=== PATIENT | female | born 1955 | race Caucasian/White ===

== ENCOUNTER 2023-02-17 17:18 | Day surgery (SDC) | payer BC, SELFPAY ==
[2023-02-17] VITALS (8 sets, daily range): BP systolic 95–120; BP diastolic 58–71; PULSE 60–82; RESP 14–18; TEMP 36.4–36.8; O2SAT 93–97; BMI 25.8; BMI 26.0
--- NOTE | 2023-02-17 16:04 | CRLHL7_ITS ---
For Patients: As a result of the Century Cures Act, medical imaging exams and procedure reports are released immediately into your electronic medical record. You may view this report before your referring provider. If you have questions, please contact your health care provider. INDICATION: Right upper quadrant abdomen pain. TECHNIQUE: Ultrasound abdomen limited. Sonographic images of the right upper quadrant were obtained using ram-scale and color Doppler images. COMPARISON: None. FINDINGS: Liver: Normal in size and echotexture. Multiple hepatic cysts. No suspicious masses. No intrahepatic biliary dilatation. Gallbladder: Mildly distended gallbladder with associated wall thickening, and possible tiny gallstones. Positive sonographic Babcock sign per corporate associate attorney. Common bile duct: 8 mm. Pancreas: Unremarkable. Right kidney: Normal in size. Normal echotexture and cortex. No hydronephrosis. Incidental 7 millimeter right superior pole hyperechoic lesion, possibly angiomyolipoma. Vasculature: Proximal abdominal aorta and IVC are unremarkable. IMPRESSION: Mildly distended gallbladder with associated wall thickening and possible tiny gallstones. Positive sonographic Babcock sign per corporate associate attorney. Constellation of findings could suggest early appendicitis in the appropriate clinical setting. Recommend correlation with localized physical examination and laboratory values. Mild dilation of the common bile duct, measuring 8 millimeters. Recommend correlation with bilirubin to evaluate for biliary obstruction. Incidental 7 millimeter right superior pole hypoechoic lesion, possibly angiomyolipoma. Recommend correlation with prior imaging if available. If not, consider outpatient nonemergent MRI or CT for further characterization, although this lesion may be too diminutive in size for sufficient evaluation with cross-sectional imaging. Dictated by Ronald Mehta MD @ 02/17/2023 5:57:06 PM (Electronically Signed)
[2023-02-17] MEDS: ONDANSETRON 2 MG/ML inj 4 MG IVP (16:12)
[2023-02-17] MEDS: MORPHINE 4 MG/ML INJ IVP (16:17)
[2023-02-17 16:31] LABS: Basophils Absolute Auto 0.03 K/uL (0.00-0.30); Basophils Percent Auto 0.4 % (0.0-3.0); Eosinophils Absolute Auto 0.16 K/uL (0.00-0.50); Eosinophils Percent Auto 2.1 % (0.0-7.0); Hematocrit 40.2 % (33.0-51.0); Hemoglobin* 13.1 gm/dL (12.0-16.0); Immature Granulocytes Abs Auto 0.01 K/uL (0.00-0.30); Immature Granulocytes Pct Auto 0.1 %; Lymphocytes Percent Auto 17.2 % (20-44); Mean Corpuscular HGB Conc 33 gm/dL (32-36); Mean Corpuscular Hemoglobin 30 pg (26-34); Mean Corpuscular Volume 92 fL (80-100); Neutrophils Absolute Auto 5.27 K/uL (1.7-7.0); Neutrophils Percent Auto 70.2 % (42.0-72.0); Platelet Count* 406 K/uL (140-440); RDW Coefficient of Variation % 12.6 % (11.5-15.5); Red Blood Count 4.38 m/uL (4.00-5.20); White Blood Count* 7.51 K/uL (4.50-11.00)
[2023-02-17 16:35] LABS: Slide Review Reflex No
[2023-02-17 16:37] LABS: Albumin* 4.4 g/dL (3.3-5.0); Chloride* 101 mmol/L (96-114); Potassium* 3.4 mmol/L (3.6-5.1); Sodium* 139 mmol/L (135-149)
[2023-02-17 16:39] LABS: Bilirubin Total* 1.5 mg/dL (0.1-1.5); Carbon Dioxide* 30 mmol/L (20-32); Creatinine* 0.7 mg/dL (0.5-1.5); Est. Creatinine Clearance* 52.51; Estimated Glomerular Filt Rate 96 ml/min
[2023-02-17 16:40] LABS: Alanine Aminotransferase* 476 U/L (4-35); Alkaline Phosphatase* 91 U/L (40-150); Blood Urea Nitrogen* 13 mg/dL (7-30); Calcium* 9.1 mg/dL (8.4-10.6); Glucose* 121 mg/dL (60-115); Total Protein* 7.4 g/dL (6.0-8.3)
[2023-02-17 16:46] LABS: Aspartate Amino Transferase* 737 U/L (12-35)
--- OUTSIDE RECORDS SUMMARY | 2023-02-17 17:20 | XMS_ITS | Continuity of Care Document ---
Author Name Unknown Organization [facility] Address [address] [place] [address] Phone Care Team Providers Care Last Scourer Name Role Phone Shyanne GARCIA, PhD, Keith Unavailable Unavai lable Allergies, Adverse Reactions, Alerts Substance Reaction Status Criticality No Known Allergies Active No Inform ation Medications Medication Instructions Dosage Effective Dates (start - stop) Status Comments TIZANIDINE HCL (unknown strength) Not Available - Active FLUOXETINE HCL (unknown strength) Not Available - Active Procedures Procedure Date Office/Outpatient Visit,[facility] 2017 Advance Directives Directive Yes / No Effective Date File Name No Information Encounters Encounter Description Practice Location Reason(s) For Visit Diagnoses Date Provider Providers Copied on Encounter Office/Outpat ient Visit,[facility], [facility], [address], [facility] [place], [id number], [place] tel:[phone] [facility] [place] CervicalgiaOther spondylosis, cervical region 8 Shyanne Parker. [facility], [address] [facility] [address], [place], [address], [place]. tel:[phone] [facility], [address], [place], [id number], [place] tel:[phone] [facility] Cervicalgia 8 Shyanne Parker. [facility], [address], [place], [address], [place]. [phone] Family History Family Member Type Diagnosis Age At Onset No Information Payers Payer name Insurance type Covered constitution party ID Authoriza tion(s) [facility] [id number] Social History Type Description Quantity Date Captured Comments Alcohol Use Details Unknown Caffeine Use Details Unknown Tobacco Use Status Never smoked tobacco 2017 Smoking Status Never smoker Non-Smoking Tobacco Use Details : No Details Available : No Details Available Sex Female Vital Signs Date / Time: Height Weight BMI Pulse Rate Blood Pressure Temperature Respiratory Rate Body Surface Area Head Circumference Head Circ. Percentile Wt./Juan. Percentile BMI percentile Pulse Ox Inhaled Ox 12:39 PM 66.00 in 73.482 kg (162.00 lbs) 26.1 5 kg/m eter (2) 86 /min 106/64 mm[Hg] Chief Complaint And Reason For Visit No Information Reason For Referral Reason For Referral No Information History Of Present Illness Encounter Date Complaint History Of Prese nt Illness No Information Functional Status Date Functional Assessmen t No Information Instructions Date Instruction Additional Infor mation No Information Assessments Type Assessment Date assessment Cervicalgia assessment Other spondylosis, cervical cristin on Patient Care Teams Name Effective Dates (start - stop) Status Members No Information
--- OUTSIDE RECORDS SUMMARY | 2023-02-17 17:21 | XMS_ITS | Continuity of Care Document ---
Author Name Unknown Organization [facility] Address [address] [place] [address] Phone Care Team Providers Care Boiler Installer Name Role Phone Shyanne GARCIA, PhD, Keith Unavailable Unavai lable Allergies, Adverse Reactions, Alerts Substance Reaction Status Criticality No Known Allergies Active No Inform ation Medications Medication Instructions Dosage Effective Dates (start - stop) Status Comments TIZANIDINE HCL (unknown strength) Not Available - Active FLUOXETINE HCL (unknown strength) Not Available - Active Procedures Procedure Date Office/Outpatient Visit,[facility] [place] Advance Directives Directive Yes / No Effective Date File Name No Information Encounters Encounter Description Practice Location Reason(s) For Visit Diagnoses Date Provider Providers Copied on Encounter Office/Outpat ient Visit,[facility], [facility], [address], [facility] [place], [id number], [place] tel:[phone] [facility] [place] CervicalgiaOther spondylosis, cervical region 8 Shyanne Parker. [facility], [address] [facility] [address], [place], [address], [place]. tel:[phone] [facility], [address], [place], [place], [id number], [place] tel:[phone] [facility] Cervicalgia 8 Shyanne Parker. [facility], [address], [place], [address], [place]. [phone] Family History Family Member Type Diagnosis Age At Onset No Information Payers Payer name Insurance type Covered constitution party ID Authoriza tion(s) [facility] [id number] Social History Type Description Quantity Date Captured [...]
--- NOTE | 2023-02-17 17:27 | ED.GENADULT ---
HPI - General Adult General Date Seen: 02/17/23 Chief complaint: Abdominal Pain Stated complaint: Sharp pain R side Time Seen by Provider: 02/17/23 15:59 Source: patient Mode of arrival: ambulatory Limitations: no limitations History of Present Illness HPI narrative: Patient is a 67-year-old female with no previous abdominal surgeries and no pertinent medical problems presenting to emergency department for right upper quadrant abdominal pain. She states the symptoms have been going on for the past month. She has not been associated primary care provider yet. She has been doing the symptoms and noted acutely worse today. States they are worse after meals Especially after fatty or spicy meals. denies fevers, chills, chest pain, shortness of breath, headache, vision changes, weakness, numbness, diarrhea, dysuria. States she still has her gallbladder. Denies any other abdominal issues. Related Data Home Medications Medication Instructions Recorded Confirmed fluoxetine 20 mg capsule 40 mg PO QAM 02/17/23 02/17/23 quetiapine 50 mg tablet 50 mg PO QPM 02/17/23 02/17/23 Allergies Allergy/AdvReac Type Severity Reaction Status Date / Time No Known Drug Allergies Allergy Verified 02/17/23 15:58 Review of Systems Status of ROS: Reports: 10 or more systems reviewed and unremarkable except as noted in History and below PFSH PFS Social History Smoking Status: Never smoker How often do you have a drink containing alcohol: never How often do you have six or more drinks on one occasion: Never AUDIT-C Alcohol total score: 0 Non-prescribed substance use: denies use Exam Narrative: Exam Narrative: Const: Well-nourished, Well-developed, in mild distress Eyes: PERRL, no conjunctival injection, and symmetrical lids ENMT: Atraumatic external nose and ears. Moist mucous membranes. Neck: Symmetric, trachea midline, No thyromegaly. CVS: RRR, No murmurs or gallops. Peripheral pulses 2+ and equal in all extremities RESP: Unlabored respiratory effort. Clear to auscultation bilaterally. GI: Right upper quadrant tenderness.Nondistended, Positive Babcock sign MSK:Extremities w/o deformity, Normal Active ROM Skin: Warm, Dry. No rashes or lesions. Neuro: Normal Muscle tone, No focal neurological deficits. Psych: Awake, Alert, & Oriented x3. Appropriate mood and affect. Const: Vital Signs, click to edit/add: Vital Signs - 24 hr 02/17/23 15:55 02/17/23 16:19 02/17/23 18:15 Temperature 97.6 F Pulse Rate [Pulse Oximeter] 82 75 Respiratory Rate 16 Blood Pressure [Ri ght Upper Arm] 104/71 106/70 Pulse Oximetry 97 93 97 Oxygen Delivery Me thod Room Air Room Air 02/17/23 19:45 Temperature 97.9 F Pulse Rate [Pulse Oximeter] 77 Respiratory Rate Blood Pressure [Ri ght Upper Arm] 107/58 L Pulse Oximetry 94 Oxygen Delivery Me thod Room Air Course Vital Signs Vital signs: Initial Vital Signs Temperature 97.6 F 02/17/23 15:55 Temperature Source Temporal Artery Scan 02/17/23 15:55 Pulse Rate 82 02/17/23 15:55 Respiratory Rate 16 02/17/23 15:55 Blood Pressure 104/71 02/17/23 15:55 Blood Pressure Mean 82 02/17/23 15:55 Blood Pressure Position Sitting 02/17/23 15:55 Pulse Oximetry 97 02/17/23 15:55 Oxygen Delivery Method Room Air 02/17/23 15:55 Vital Signs Temperature 97.6 F 02/17/23 15:55 Pulse Rate 82 02/17/23 15:55 Respiratory Rate 16 02/17/23 15:55 Blood Pressure 104/71 02/17/23 15:55 Pulse Oximetry 97 02/17/23 15:55 Oxygen Delivery Method Room Air 02/17/23 15:55 Temperature 97.9 F 02/17/23 19:45 Pulse Rate 77 02/17/23 19:45 Respiratory Rate 16 02/17/23 15:55 Blood Pressure 107/58 L 02/17/23 19:45 Pulse Oximetry 94 02/17/23 19:45 Oxygen Delivery Method Room Air 02/17/23 19:45 Medical Decision Making MDM Narrative Medical decision making narrative: patient is a 67-year-old female presenting emergency department for right upper quadrant pain. Pain is going for past month and it is worse when she eats fatty or spicy foods. She still has a gallbladder. No other abdominal surgeries. Based on her clinical presentation I believe she most likely is cholecystitis. She has a positive Babcock sign. She did have some tenderness in the right lower quadrant appendicitis is on the differential at this time. Also possibly pancreatitis. Likely be a small-bowel obstruction concerning this symptoms. CBC, CMP, direct check bilirubin, lipase, urinalysis, right upper quadrant ultrasound were ordered. Ultrasound of the right upper quadrant shows possibly cholecystitis but also some concerns for appendicitis and due to this CT was ordered. The CT scan returned showing acute cholecystitis. Ultrasound also showed a mildly dilated common bile duct and cannot rule out stones within the common bile duct at this time. Patient's lab work returned showing a AST of 737 and an ALT of 476. I spoke to Dr. Lama and she agrees with the Cholecystitis. The direct bilirubin was still pending at this time she states if it is normal or only mildly elevated she Does not believe the patient needs an ERCP and she does not need to be contacted again. patient is otherwise doing well. She was admitted to the hospitalist service. Lipase was within normal limits and direct bilirubin was only 0.8. No clear signs of infection at this time and antibiotics were not given. Lab Data Labs: Lab Results 02/17/23 02/17/23 02/17/23 Range/Units 16:00 19:59 20:01 WBC 7.51 (4.50-11.00) K/uL RBC 4.38 (4.00-5.20) m/uL Hgb 13.1 (12.0-16.0) gm/dL Hct 40.2 (33.0-51.0) % MCV 92 (80-100) fL MCH 30 (26-34) pg MCHC 33 (32-36) gm/dL RDW Coeff of Maxim 12.6 (11.5-15.5) % Plt Count 406 (140-440) K/uL Neut % (Auto) 70.2 (42.0-72.0) % Lymph % (Auto) 17.2 L (20-44) % [facility] % (Auto) 10.0 (0.0-11.0) % Eos % (Auto) 2.1 (0.0-7.0) % Baso % (Auto) 0.4 (0.0-3.0) % Neut # (Auto) 5.27 (1.7-7.0) K/uL Lymph # (Auto) 1.30 (0.90-2.90) K/uL [facility] # (Auto) 0.80 (0.00-0.90) K/UL Eos # (Auto) 0.16 (0.00-0.50) K/uL Baso # (Auto) 0.03 (0.00-0.30) K/uL Abs Immat Gran (auto) 0.01 (0.00-0.30) K/uL Imm/Tot Granulo (auto) 0.1 % Sodium 139 (135-149) mmol/L Potassium 3.4 L (3.6-5.1) mmol/L Chloride 101 (96-114) mmol/L Carbon Dioxide 30 (20-32) mmol/L BUN 13 (7-30) mg/dL Creatinine 0.7 (0.5-1.5) mg/dL Estimated Creat Clear 52.51 Estimated GFR 96 ml/min Glucose 121 H (60-115) mg/dL Calcium 9.1 (8.4-10.6) mg/dL Total Bilirubin 1.5 (0.1-1.5) mg/dL Direct Bilirubin 0.8 H (0.0-0.5) mg/dL AST 737 H (12-35) U/L ALT 476 H (4-35) U/L Alkaline Phosphatase 91 (40-150) U/L Total Protein 7.4 (6.0-8.3) g/dL Albumin 4.4 (3.3-5.0) g/dL Lipase 137 (23-300) U/L Lab Acknowledgement Test Added Test Added Discharge Plan Discharge Clinical Impression: Acute cholecystitis Patient Disposition: Admitted As Observation Condition: Improved
--- NOTE | 2023-02-17 18:00 | CRLHL7_ITS ---
For Patients: As a result of the Century Cures Act, medical imaging exams and procedure reports are released immediately into your electronic medical record. You may view this report before your referring provider. If you have questions, please contact your health care provider. INDICATION: right upper quadrant and right lower quadrant tenderness since today, pain was intermittent for a couple of months. TECHNIQUE: CT abdomen and pelvis acquired with 79 cc Isovue 370 IV contrast. COMPARISON: None. FINDINGS: Lower chest: Unremarkable. Liver: Unremarkable. Normal in size and attenuation. No suspicious masses. Gallbladder and bile ducts: Gallbladder wall enhancement and likely mild thickening is noted. Pericholecystic fluid is identified. Mild intrahepatic biliary ductal dilatation. Pancreas: Unremarkable. No mass or inflammation. Spleen: Unremarkable. Normal in size. No masses. Adrenal glands: Unremarkable. No nodules. Kidneys: Unremarkable. No suspicious masses, stones, or hydronephrosis. GI tract: Unremarkable. Normal in caliber. No sign of mass or inflammation. Normal appendix. Vasculature: Abdominal aorta is normal in caliber. Mesenteric arteries are patent. Lymph nodes: No lymphadenopathy. Peritoneum/Abdominal Wall: Unremarkable. No sign of mass or infiltration. No free air or significant free fluid. Pelvis: Unremarkable. Bones: Unremarkable for age. IMPRESSION: Mild gallbladder wall thickening and enhancement with pericholecystic fluid concerning for cholecystitis. Please note that all CT scans at this facility use dose modulation, iterative reconstruction, and/or weight-based dosing when appropriate to reduce radiation dose to as low as reasonably achievable. Dictated by Nika Wilks MD @ 02/17/2023 7:51:57 PM (Electronically Signed)
[2023-02-17 20:51] LABS: Bilirubin Direct* 0.8 mg/dL (0.0-0.5)
[2023-02-17 20:52] LABS: Lipase* 137 U/L (23-300)
--- NOTE | 2023-02-17 21:41 | P.IMHP_ITS ---
Hospitalist- H&P: HPI History of Present Illness Date Seen: 02/18/23 Chief complaint: Sharp pain R side Narrative: Nguyen Hill is a 67 year old female with past medical history of Depression presenting for abdominal pain. The patient has had intermittent abdominal pain for several weeks that has been waxing and waning. Today she developed sharp and burning RUQ abdominal pain. 05/04. Radiates to back worsens with eating. She endorses nausea and dyspepsia. She denies chest pain, sob, fever. In the ED RUQ US showed Mildly distended gallbladder with associated wall thickening and possible tiny gallstones. Positive sonographic Babcock signMild dilation of the common bile duct, measuring 8 millimeters. Recommend correlation with bilirubin to evaluate for biliary obstruction. Incidental 7 millimeter right superior pole hypoechoic lesion, possibly angiomyolipoma. CT AP showing Mild gallbladder wall thickening and enhancement with pericholecystic fluid concerning for cholecystitis. Notable labs potassium 3.4, AST 737, ALT 476, Alkphos, lipase, Tbili WNL. She denies adverse reaction to general anesthesia. She denies toboacco use and endorses occassional alcohol use very seldom. In the ED her case was discussed with General Surgery who recommended admission with co nsultation in AM. RUQ US IMPRESSION: Mildly distended gallbladder with associated wall thickening and possible tiny gallstones. Positive sonographic Babcock sign per artificial limb fitter. Constellation of findings could suggest early appendicitis in the appropriate clinical setting. Recommend correlation with localized physical examination and laboratory values. Mild dilation of the common bile duct, measuring 8 millimeters. Recommend correlation with bilirubin to evaluate for biliary obstruction. Incidental 7 millimeter right superior pole hypoechoic lesion, possibly angiomyolipoma. Recommend correlation with prior imaging if available. If not, consider outpatient nonemergent MRI or CT for further characterization, although this lesion may be too diminutive in size for sufficient evaluation with cross-sectional imaging. Review of Systems Status of ROS: Reports: 10 or more systems reviewed and unremarkable except as noted in History and below [facility] Medical History H/O pneumothorax ?Z87.09 - Personal history of other diseases of the respiratory system (ICD- 10) Surgical History H/O breast augmentation ?Z98.82 - Breast implant status (ICD-10) H/O lumbosacral spine surgery ?Z98.890 - Other specified postprocedural states (ICD-10) Social History What is your current living situation?: I presently have a place to live Problems where you live: no known problems Problems where you live details: N/A In the past 12 months, utilities in danger of being shut off: no In the past 12 mos, have been you worried that your food would run out before you had money to buy more?: never true In the past 12 mos, the food you bought just didn't last and you didn't have money to buy more?: never true Highest level of school completed/degree received: some college, no degree Smoking Status: Never smoker Do you use any of these nicotine containing products: None Second hand tobacco smoke exposure: No How often do you have a drink containing alcohol: never How often do you have six or more drinks on one occasion: Never AUDIT-C Alcohol total score: 0 Non-prescribed substance use: denies use Caffeine: Yes How often does anyone, including family, friends and others, physically hurt you : never How often does anyone, including family, friends and others, insult or talk down to you: never How often does anyone, including family, friends and others, threaten you with harm: never How often does anyone, including family, friends and others, scream or curse at you: never service: No Meds Home Medications and Allergies Home Medications Medication Instructions Recorded Confirmed Type fluoxetine 20 mg capsule 40 mg PO QAM 02/17/23 02/17/23 History quetiapine 50 mg tablet 50 mg PO HS 02/17/23 02/18/23 History Allergies Allergy/AdvReac Type Severity Reaction Status Date / Time No Known Drug Allergies Allergy Verified 02/17/23 15:58 Exam Narrative: Exam Narrative: Gen: no acute distress HEENT: NCAT EOMI mmm Neck: Supple CV: RRR normal s1 s2 Lungs: CTAB Abd: Soft,nt, nd Neuro: Alert, oriented, CN grossly intact; nonfocal screening?exam Psych: appropriate affect MSK: age appropriate muscle mass Skin; Warm, dry no rash on face Const: Vital Signs, click to edit/add: Vital Signs - 24 hr 02/17/23 15:55 02/17/23 16:19 02/17/23 18:15 Temperature 97.6 F Pulse Rate [Pulse Oximeter] 82 75 Respiratory Rate 16 Blood Pressure [Ri ght Upper Arm] 104/71 106/70 Pulse Oximetry 97 93 97 Oxygen Delivery Me thod Room Air Room Air 02/17/23 19:45 02/17/23 21:35 Temperature 97.9 F Pulse Rate [Pulse Oximeter] 77 64 Respiratory Rate Blood Pressure [Ri ght Upper Arm] 107/58 L 120/68 Pulse Oximetry 94 95 Oxygen Delivery Me thod Room Air Room Air Hospitalist - H&P: Result Labs Labs: Short CBC 02/17/23 Range/Units 16:00 WBC 7.51 (4.50-11.00) K/uL Hgb 13.1 (12.0-16.0) gm/dL Hct 40.2 (33.0-51.0) % Plt Count 406 (140-440) K/uL BMP 02/17/23 16:00 Sodium 139 Potassium 3.4 L Chloride 101 Carbon Dioxide 30 BUN 13 Creatinine 0.7 Glucose 121 H Calcium 9.1 Liver Function 02/17/23 Range/Units 16:00 Total Bilirubin 1.5 (0.1-1.5) mg/dL Direct Bilirubin 0.8 H (0.0-0.5) mg/dL AST 737 H (12-35) U/L ALT 476 H (4-35) U/L Alkaline Phosphatase 91 (40-150) U/L Albumin 4.4 (3.3-5.0) g/dL Assessment and Plan Assessment and plan (1) Hypokalemia: Status: Acute (2) Depression: Status: Acute Plan Nguyen Hill is a 67 year old female with past medical history of Depression presenting for abdominal pain. The patient has had intermittent abdominal pain for several weeks that has been waxing and waning. Today she developed sharp and burning RUQ abdominal pain. 05/04. Radiates to back worsens with eating. She endorses nausea and dyspepsia. She denies chest pain, sob, fever. In the ED RUQ US showed Mildly distended gallbladder with associated wall thickening and possible tiny gallstones. Positive sonographic Babcock signMild dilation of the common bile duct, measuring 8 millimeters. Recommend correlation with bilirubin to evaluate for biliary obstruction. Incidental 7 millimeter right superior pole hypoechoic lesion, possibly angiomyolipoma. CT AP showing Mild gallbladder wall thickening and enhancement with pericholecystic fluid concerning for cholecystitis. Notable labs potassium 3.4, AST 737, ALT 476, Alkphos, lipase, Tbili WNL. She denies adverse reaction to general anesthesia. She denies toboacco use and endorses occassional alcohol use very seldom. In the ED her case was discussed with General Surgery who recommended admission with consultation in AM. 1. Acute cholecystitis 2. Hypokalemia 3. Hx of Depression Plan -admit to SDS -npo -MIVF -antiemetics -pain control -surgery team contacted by ED -barrera -repeat LFTs in AM -PPI Code-Full DVt ppx-SCD
[2023-02-17] MEDS: PIPERACILLIN/TAZOBACTAM 3.375 GM in 0.9 % SODIUM CHLORIDE Mini-bag 100 ML IVPB (22:49)
[2023-02-17] MEDS: PANTOPRAZOLE SODIUM 40 MG INJ IVP (22:49)
[2023-02-17] MEDS: POTASSIUM CHLORIDE 10 MEQ CAPSULE ER 20 MEQ PO (22:49)
--- NOTE | 2023-02-17 23:16 | PC.NURSE ---
Shift note: Pt arrived at the unit at 2145 on a wheelchair. Pt was alert, oriented and conscious on arrival. Vital signs were stable. Pain was rated as 1 on arrival. Epigastric tenderness. No n/v reported. Due treatment given as ordered.
[2023-02-17] MEDS: 5 % DEX/0.45 SOD CHL+KCL20 mEq 1,000 ML 100 ML IV (23:51)
[2023-02-17] MEDS: SODIUM CHLORIDE 0.9 % (FLUSH) 10 ML SYRINGE 5 ML IVF (23:52)
[2023-02-18] VITALS (35 sets, daily range): BP systolic 91–134; BP diastolic 55–79; PULSE 56–83; RESP 7–16; TEMP 36.4–36.9; O2SAT 81–99
[2023-02-18] MEDS: PIPERACILLIN/TAZOBACTAM 3.375 GM in 0.9 % SODIUM CHLORIDE Mini-bag 100 ML IVPB ×2 (04:06→14:52)
[2023-02-18] MEDS: ACETAMINOPHEN 325 MG TABLET 650 MG PO ×2 (04:35→18:27)
--- NOTE | 2023-02-18 06:01 | PC.NURSE ---
END OF SHIFT NOTE: PT PLEASANT AND COOPERATIVE. A&Ox4. PT DENIES CP, SOB, N/V. AMBULATES INDEPENDENTLY. BP SOFT ; AFEBRILE.?CALL LIGHT WITHIN PT?S REACH.?PT HAS BEEN NPO THIS SHIFT.
[2023-02-18 06:12] LABS: Appearance Urine Clear (Clear); Bilirubin Urine Negative (Negative); Blood Urine Negative (Negative); Color Urine Yellow (Yellow); Glucose Urine Negative (Negative); Ketones Urine Negative (Negative); Leukocyte Esterase Urine Negative (Negative); Nitrite Urine Negative (Negative); Protein Urine Negative (Negative); Specific Gravity Urine 1.015 (1.000-1.030); Urobilinogen Urine 0.2 (0.2-1.0)
[2023-02-18 06:29] LABS: RBC Urine 0-2 (0-2); WBC Urine 0-2 (0-5)
--- NOTE | 2023-02-18 08:10 | P.GSCN_ITS ---
History of Present Illness Consult details Date Seen: 02/18/23 Consult date: 02/18/23 Narrative: 67-year-old female presented to emergency room with right upper quadrant pain that started yesterday in the morning. She states the pain was so severe and was escalating that she presented to the emergency room. She was not sure what was making the pain better or worse. Yesterday in the morning she had yogurt and tomatoes. She states that she had several similar episodes in the past and started to record those episodes. She mostly noticed that the episodes happened after eating spicy and fried food. In the emergency room she was found to have a normal WBC of 7.5. Her hemoglobin was 13.1. Liver function tests were obtained and her total bilirubin was 1.5 with direct bilirubin 0.8, AST 737, ALT 476, alkaline phosphatase 91, and normal lipase. Patient had an gallbladder ultrasound that showed distended gallbladder with a gallbladder wall of 4 mm. Her common bile duct was 7-8 mm. Patient also had a CT scan because she had some tenderness to palpation in the right lower quadrant as well and her CT scan showed liver cysts with thickened gallbladder wall and pericholecystic fluid. Her small and large intestine was not dilated. Review of Systems Narrative: General: no fevers HENT: no problems swallowing CV: no shortness of breath Resp: no cough GI: See above : no dysuria, no increased urinary frequency, no hematuria Skin: no new rashes Musculoskeletal: no back pain Neuro: no muscle weakness Psyche: no depression, no anxiety PFSH PFSH Medical History H/O pneumothorax ?Z87.09 - Personal history of other diseases of the respiratory system (ICD- 10) Surgical History H/O breast augmentation ?Z98.82 - Breast implant status (ICD-10) H/O lumbosacral spine surgery ?Z98.890 - Other specified postprocedural states (ICD-10) Social History What is your current living situation?: I presently have a place to live Problems where you live: no known problems Problems where you live details: N/A In the past 12 months, utilities in danger of being shut off: no In the past 12 mos, have been you worried that your food would run out before you had money to buy more?: never true In the past 12 mos, the food you bought just didn't last and you didn't have money to buy more?: never true Highest level of school completed/degree received: some college, no degree Smoking Status: Never smoker Do you use any of these nicotine containing products: None Second hand tobacco smoke exposure: No How often do you have a drink containing alcohol: never How often do you have six or more drinks on one occasion: Never AUDIT-C Alcohol total score: 0 Non-prescribed substance use: denies use Caffeine: Yes How often does anyone, including family, friends and others, physically hurt you : never How often does anyone, including family, friends and others, insult or talk down to you: never How often does anyone, including family, friends and others, threaten you with harm: never How often does anyone, including family, friends and others, scream or curse at you: never service: No Meds Home Medications and Allergies Home Medications Medication Instructions Recorded Confirmed Type fluoxetine 20 mg capsule 40 mg PO QAM 02/17/23 02/17/23 History quetiapine 50 mg tablet 50 mg PO HS 02/17/23 02/18/23 History Allergies Allergy/AdvReac Type Severity Reaction Status Date / Time No Known Drug Allergies Allergy Verified 02/17/23 15:58 Exam Narrative: Exam Narrative: General appearance: Alert, cooperative, and in no distress Pulmonary: Chest symmetric, lungs clear bilaterally Cardiovascular Heart: Regular rate and rhythm, S1, S2, no murmurs/rubs/gallops Gastrointestinal Abdominal: soft, not distended, tender to palpation in the right upper quadrant with positive Babcock sign. There is minimal tenderness to palpation the right lower quadrant. Skin: Normal skin color, texture, and turgor. No rashes or lesions. Psychiatric: Alert, cooperative, normal affect. Const: Vital Signs, click to edit/add: Vital Signs - 24 hr 02/17/23 15:55 02/17/23 16:19 02/17/23 18:15 Temperature 97.6 F Pulse Rate [Pulse Oximeter] 82 75 Pulse Rate [Right Pulse Oximeter] Respiratory Rate 16 Blood Pressure [Ri ght Arm] Blood Pressure [Ri ght Upper Arm] 104/71 106/70 Pulse Oximetry 97 93 97 Oxygen Delivery Me thod Room Air Room Air 02/17/23 19:45 02/17/23 21:35 02/17/23 21:51 Temperature 97.9 F 98.2 F Pulse Rate [Pulse Oximeter] 77 64 Pulse Rate [Right Pulse Oximeter] 63 Respiratory Rate 18 Blood Pressure [Ri ght Arm] 116/67 Blood Pressure [Ri ght Upper Arm] 107/58 L 120/68 Pulse Oximetry 94 95 95 Oxygen Delivery Me thod Room Air Room Air Room Air 02/17/23 23:00 02/17/23 23:30 02/18/23 03:55 Temperature 97.5 F L 97.5 F L Pulse Rate [Pulse Oximeter] Pulse Rate [Right Pulse Oximeter] 60 56 L Respiratory Rate 14 14 14 Blood Pressure [Ri ght Arm] 95/61 91/57 L Blood Pressure [Ri ght Upper Arm] Pulse Oximetry 95 96 Oxygen Delivery Nc thod Room Air Room Air Results Labs Labs: Abnormal lab results 02/17/23 Range/Units 16:00 Lymph % (Auto) 17.2 L (20-44) % Potassium 3.4 L (3.6-5.1) mmol/L Glucose 121 H (60-115) mg/dL Direct Bilirubin 0.8 H (0.0-0.5) mg/dL AST 737 H (12-35) U/L ALT 476 H (4-35) U/L Diabetes panel 02/17/23 Range/Units 16:00 Sodium 139 (135-149) mmol/L Potassium 3.4 L (3.6-5.1) mmol/L Chloride 101 (96-114) mmol/L Carbon Dioxide 30 (20-32) mmol/L BUN 13 (7-30) mg/dL Creatinine 0.7 (0.5-1.5) mg/dL Glucose 121 H (60-115) mg/dL Calcium 9.1 (8.4-10.6) mg/dL AST 737 H (12-35) U/L ALT 476 H (4-35) U/L Alkaline Phosphatase 91 (40-150) U/L Total Protein 7.4 (6.0-8.3) g/dL Albumin 4.4 (3.3-5.0) g/dL Calcium panel 02/17/23 Range/Units 16:00 Calcium 9.1 (8.4-10.6) mg/dL Albumin 4.4 (3.3-5.0) g/dL Pituitary panel 02/17/23 Range/Units 16:00 Sodium 139 (135-149) mmol/L Potassium 3.4 L (3.6-5.1) mmol/L Chloride 101 (96-114) mmol/L Carbon Dioxide 30 (20-32) mmol/L BUN 13 (7-30) mg/dL Creatinine 0.7 (0.5-1.5) mg/dL Glucose 121 H (60-115) mg/dL Calcium 9.1 (8.4-10.6) mg/dL Adrenal panel 02/17/23 Range/Units 16:00 Sodium 139 (135-149) mmol/L Potassium 3.4 L (3.6-5.1) mmol/L Chloride 101 (96-114) mmol/L Carbon Dioxide 30 (20-32) mmol/L BUN 13 (7-30) mg/dL Creatinine 0.7 (0.5-1.5) mg/dL Glucose 121 H (60-115) mg/dL Calcium 9.1 (8.4-10.6) mg/dL Total Bilirubin 1.5 (0.1-1.5) mg/dL AST 737 H (12-35) U/L ALT 476 H (4-35) U/L Alkaline Phosphatase 91 (40-150) U/L Total Protein 7.4 (6.0-8.3) g/dL Albumin 4.4 (3.3-5.0) g/dL All other labs normal. Assessment and Plan Assessment and plan (1) Acute cholecystitis: Status: Acute Plan 67-year-old female presented to emergency room with right upper quadrant abdominal pain that is most likely due to acute cholecystitis and possible choledochocholelithiasis. I discussed with the patient her laboratory findings, her ultrasound and CT findings. Patient has inflammation around the gallbladder on her CT scan suggestive of acute cholecystitis. She also has mildly distended gallbladder with gallbladder wall thickening on ultrasound. Her common bile duct is slightly larger than the upper limit of normal and her direct bilirubin is mildly elevated. Given patient's clinical history and her physical exam, I recommended to proceed with laparoscopic cholecystectomy and intraoperative cholangiogram. The procedure was discussed in detail. The risks associated procedure including infection, bleeding, injury to intra-abdominal organs, injury to the common bile duct, and possible need for future ERCP were all discussed with the patient, and she agreed to proceed.
--- OUTSIDE RECORDS SUMMARY | 2023-02-18 08:28 | XMS_ITS | Continuity of Care Document ---
Author Name Unknown Organization [facility] Address [address] [place] [address] Phone Care Team Providers Care Assistance Specialist Name Role Phone Shyanne GARCIA, PhD, Keith Unavailable Unavai lable Allergies, Adverse Reactions, Alerts Substance Reaction Status Criticality No Known Allergies Active No Inform ation Medications Medication Instructions Dosage Effective Dates (start - stop) Status Comments TIZANIDINE HCL (unknown strength) Not Available - Active FLUOXETINE HCL (unknown strength) Not Available - Active Procedures Procedure Date Office/Outpatient Visit,[facility] [place] [facility] 2017 Advance Directives Directive Yes / No Effective Date File Name No Information Encounters Encounter Description Practice Location Reason(s) For Visit Diagnoses Date Provider Providers Copied on Encounter Office/Outpat ient Visit,[facility], [facility] [place] [facility], [address] [place], [id number], [place] tel:[phone] [facility] - [place] CervicalgiaOther spondylosis, cervical region 8 Shyanne Parker. [facility], [address] [facility] [address], [place], [address], [place]. tel:[phone] [facility], [address], [place], [place], [id number], [place] tel:[phone] [facility] [place] Cervicalgia 8 Shyanne Parker. [facility], [address], [place], [address], [place]. [phone] Family History Family Member Type Diagnosis Age At Onset No Information Payers Payer name Insurance type Covered alliance party ID Authoriza tion(s) [facility] [id number] Social History Type Description Quantity Date Captured [...]
[2023-02-18] MEDS: 5 % DEX/0.45 SOD CHL+KCL20 mEq 1,000 ML 100 ML IV (11:00)
--- NOTE | 2023-02-18 12:53 | W.ANESCHARGE ---
Anesthesia Charges Start Date/Time Anesthesia Start Date: 02/18/23 Anesthesia Start Time: 14:42 Stop Date/Time Anesthesia Stop Date: 02/18/23 Anesthesia Stop Time: 16:27
--- NOTE | 2023-02-18 13:30 | CRLHL7_ITS ---
For Patients: As a result of the Century Cures Act, medical imaging exams and procedure reports are released immediately into your electronic medical record. You may view this report before your referring provider. If you have questions, please contact your health care provider. INDICATION : Laparoscopic cholecystectomy. TECHNIQUE : Intraoperative cholangiogram. Contrast injected via gallbladder neck and cystic duct. FINDINGS : Fluoroscopy time was 24.2 seconds. One image was obtained. IMPRESSION : Normal caliber extrahepatic ducts. No filling defects. Contrast seen within the duodenum. Normal intraoperative cholangiogram. Dictated by Garret Mondragon MD @ 02/19/2023 9:16:43 AM (Electronically Signed)
--- NOTE | 2023-02-18 13:55 | PC.NURSE ---
End of Shift: Pt AO throughout shift, pleasant and cooperative. Independent in room, continent with bowel and bladder. NPO since midnight in preoperation for surgery today, tolerating well. Pt denied pain throughout shift. Boyfriend at bedside.
[2023-02-18] MEDS: BUPIVACAINE 0.25% 30 ML INJECTION (15:05)
[2023-02-18] MEDS: 0.9% SODIUM CHL 50 ML VIAL INJECTION (15:30)
[2023-02-18] MEDS: IOPAMIDOL 50 ML VIAL INJECTION (15:30)
--- NOTE | 2023-02-18 16:20 | P.GSOP_ITS ---
Operative Note Pre-op diagnosis: Acute cholecystitis Post-op diagnosis: Same Type of Procedure: Laparoscopic Cholecystectomy with intraoperative cholangiogram Indications: Patient is a 67-year-old female who presented to the emergency department with clinical workup and symptoms consistent with acute cholecystitis. I had a detailed conversation with the patient regarding the diagnosis of acute cholecystitis. We discussed the treatment options including observation with diet modification and laparoscopic cholecystectomy. We discussed the risks of surgery (including but not limited to) the risks of bleeding, infection, injury to other structures in the abdomen including bile duct injury, bile leak and conversion to an open operation. We discussed the possibility that the patient' s pain not improve with surgery. We discussed the possibility of permanent post-operative diarrhea that may require medical management. Additionally, the conceivably of complications requiring additional surgery or further hospitalization were also discussed including the risks of [place], respiratory failure, stroke and blood clots. The patient voiced an understanding of our conversation, had the opportunity to ask questions, agreed to accept the risks of surgery and asked that we proceed with surgery. Procedure Description: After discussing the risks and benefits of the procedure, the patient signed informed consent.? The operative site was marked and the patient was brought to the operating room and placed on the operating table in supine position.? Care was taken to pad the patient's pressure points.?? The patient was then intubated by anesthesia.?? The operative site was then prepped and draped in the usual sterile fashion.? A time-out was then performed. Entrance to the abdomen was gained via a 5 mm Visiport in the left upper quadrant. The abdomen was insufflated and briefly surveyed for signs of injury. There was none. 11 mm umbilical port was placed as well as 2 working ports along the right costal margin. Patient was then placed in reverse Trendelenburg position with the right side up. The gallbladder fundus was grasped and retracted cephalad. A small amount of dissection was needed to free omental adhesions from the gallbladder. The gallbladder was also of difficult to visualize given an enlarged liver. A liver retractor was brought onto the field and used for retraction to help assist with visualization. An additional 5 mm port was placed in the upper midline. The infundibulum was grasped. A combination of hook cautery and blunt dissection was used to carefully dissect out the cystic duct and artery until they could clearly be seen entering the gallbladder without any intervening structures. The gallbladder was dissected off the cystic plate to achieve the critical view. Once this was achieved the cystic artery was clipped with 2 clips proximally and 1 clip distally and transected with the scissors. A clip was then placed distal on the cystic duct. The cystic duct was partially transected with the surgery. Intraoperative cholangiogram catheter was brought onto the field and placed within the duct. The C-arm was brought onto the field and a cholangiogram performed. The common bile duct and hepatic ducts were visualized. They were intact with no evidence of stones. Contrast flowed freely into the duodenum. The C-arm was then brought off the field. The cholangiogram catheter was removed. A clip was placed proximal on the cystic duct. The cystic duct was then completely transe cted off and additionally ligated with an 0 Vicryl Endo Stitch. The gallbladder was then taken off of the liver bed. And removed from the abdomen using an Endo- Catch bag. The gallbladder bed was surveyed for hemostasis. A small amount of bile which had spilled was suctioned from the abdomen and the ports were then removed under direct vision. The umbilical port fascia was closed with 0 Vicryl. The skin was closed with absorbable subcuticular suture. Instrument sponge and needle counts were correct at the end of the case. The patient was then woken and transferred to the PACU in stable condition. ? The patient was then woken and transported to the recovery area in stable condition. ? The patient tolerated the procedure well. Findings: Acute cholecystitis. Intraoperative cholangiogram performed with no evidence of choledocholithiasis. Anesthesia: GETA Surgeon: Montserrat Lebron MD Estimated blood loss (mL): 10 Specimen: Gallbladder Condition: stable Disposition: PACU
[2023-02-18] MEDS: MEPERIDINE 25 MG/ML INJ 12.5 MG IVP (16:30)
--- NOTE | 2023-02-18 16:34 | W.ANESCHARGE ---
Anesthesia Charges Start Date/Time Anesthesia Start Date: 02/18/23 Anesthesia Start Time: 14:42 Stop Date/Time Anesthesia Stop Date: 02/18/23 Anesthesia Stop Time: 16:27
[2023-02-18] MEDS: fentaNYL 100 MCG/2 ML inj 50 MCG IVP ×2 (16:42→16:52)
[2023-02-18] MEDS: OXYCODONE 5 MG TABLET PO (18:27)
[2023-02-18] MEDS: CEFAZOLIN 1 GM inj IVP (18:28)
--- NOTE | 2023-02-18 20:26 | PC.NURSE ---
Nursing Care Hours: [id number] Pt this shift arrived from PACU sedated and lethargic. Multiple narcotic pain meds given in PACU to control pain. Pt respirations on unit were shallow and decreased. Sp02 stable >94% on room air. Senior Principal Process Engineer watching pt closely in room, waking pt up frequently and encouraging to take deep breaths. about an hour later, pt awake and alert and RR back to normal limits. Pain treated per eMAR. Tolerating ice, water, and jello. Discharge instructions provided early per pt request. Discussed wound care, diet, activity, and pain meds. Pt up to bathroom and walked swartz short distance. C/o sore throat post surgery. throat spray ordered.
[2023-02-18 21:16] LABS: Potassium* 3.9 mmol/L (3.6-5.1)
[2023-02-18] MEDS: PANTOPRAZOLE SODIUM 40 MG INJ IVP (21:20)
[2023-02-18] MEDS: QUETIAPINE 25 MG TABLET 50 MG PO (21:20)
[2023-02-18] MEDS: MORPHINE 4 MG/ML INJ IVP (21:26)
[2023-02-19 03:00] VITALS: BP 103/61; PULSE 87; RESP 16; TEMP 36.6; O2SAT 99
[2023-02-19] MEDS: OXYCODONE 5 MG TABLET PO (03:13)
--- NOTE | 2023-02-19 06:04 | PC.NURSE ---
Patietn up and ambulating independently in room. Reporting upper right abdominal pain that is well managed with current regimen. 5 laparoscopic sites to abdomen have small amount of bloody drainage on steri strips, no signs of active bleeding. Denies any shortness of breath or chest pain. Tolerating fluids well.
[2023-02-19 08:00] VITALS: BP 104/61; PULSE 67; RESP 16; TEMP 36.4; O2SAT 97
--- NOTE | 2023-02-19 11:40 | P.DS_ITS ---
DS: Providers Provider Date Seen: 02/19/23 Primary care physician: Akosua Nixon MD Attending Physician on discharge: Kiel Lama MD DS: Diagnosis Discharge Diagnosis (1) Acute cholecystitis: Status: Acute (2) S/P laparoscopic cholecystectomy: Status: Acute DS: Summary Hospital Course Hospital Course: The patient is a 67-year-old female who was admitted with right upper quadrant pain. Workup revealed likely cholecystitis with mild elevation in LFTs. She underwent cholecystectomy with intraoperative cholangiogram on 02/18/2023. Postoperatively she did well. She was deemed safe for discharge home on 023. Time Spent with Patient Time attestation: Total time spent providing and/or coordinating discharge services: Exam Narrative: Exam Narrative: CV: Regular rate and Respiratory: Breathing nonlabored on room air Abdomen: incisions clean, dry and intact without erythema. Const: Vital Signs, click to edit/add: Vital Signs - 24 hr 02/18/23 16:35 02/18/23 16:36 02/18/23 16:37 Temperature Pulse Rate 76 79 81 Pulse Rate [Right Pulse Oximeter] Respiratory Rate 14 Blood Pressure 134/72 124/72 Blood Pressure [Ri ght Arm] Pulse Oximetry 88 82 L 89 Oxygen Delivery Me thod Room Air Room Air 02/18/23 16:42 02/18/23 16:43 02/18/23 16:44 Temperature Pulse Rate 83 75 82 Pulse Rate [Right Pulse Oximeter] Respiratory Rate 10 L Blood Pressure 121/79 Blood Pressure [Ri ght Arm] Pulse Oximetry 92 98 93 Oxygen Delivery Me thod Room Air 02/18/23 16:45 02/18/23 16:45 02/18/23 16:46 Temperature Pulse Rate 82 70 69 Pulse Rate [Right Pulse Oximeter] Respiratory Rate 16 Blood Pressure 122/68 Blood Pressure [Ri ght Arm] Pulse Oximetry 93 97 95 Oxygen Delivery Me thod Room Air 02/18/23 16:47 02/18/23 16:47 02/18/23 16:48 Temperature Pulse Rate 80 74 74 Pulse Rate [Right Pulse Oximeter] Respiratory Rate 12 Blood Pressure 121/79 122/68 Blood Pressure [Ri ght Arm] Pulse Oximetry 93 87 L 81 L Oxygen Delivery Me thod Room Air 02/18/23 16:49 02/18/23 16:50 02/18/23 16:51 Temperature Pulse Rate 74 80 78 Pulse Rate [Right Pulse Oximeter] Respiratory Rate 10 L Blood Pressure 99/64 Blood Pressure [Ri ght Arm] Pulse Oximetry 94 94 98 [facility] 02/18/23 16:52 02/18/23 16:53 02/18/23 16:54 Temperature Pulse Rate 68 65 68 Pulse Rate [Right Pulse Oximeter] Respiratory Rate Blood Pressure 99/64 Blood Pressure [Ri ght Arm] Pulse Oximetry 98 96 97 Oxygen Delivery Me od 02/18/23 16:55 02/18/23 16:56 02/18/23 16:57 Temperature Pulse Rate 68 73 76 Pulse Rate [Right Pulse Oximeter] Respiratory Rate Blood Pressure 109/61 Blood Pressure [Ri ght Arm] Pulse Oximetry 97 91 92 [facility] 02/18/23 16:58 02/18/23 16:59 02/18/23 17:00 Temperature Pulse Rate 66 67 72 Pulse Rate [Right Pulse Oximeter] Respiratory Rate Blood Pressure Blood Pressure [Ri ght Arm] Pulse Oximetry 92 95 91 [facility] 02/18/23 17:01 02/18/23 17:02 02/18/23 17:03 Temperature Pulse Rate 70 65 66 Pulse Rate [Right Pulse Oximeter] Respiratory Rate Blood Pressure 106/57 L Blood Pressure [Ri ght Arm] Pulse Oximetry 93 97 97 [facility] 02/18/23 17:04 02/18/23 17:15 02/18/23 17:15 Temperature 97.9 F Pulse Rate 65 76 Pulse Rate [Right Pulse Oximeter] 64 Respiratory Rate 7 L Blood Pressure Blood Pressure [Ri ght Arm] 107/69 114/63 Pulse Oximetry 91 91 [facility] Room Air 02/18/23 17:30 02/18/23 17:45 02/18/23 18:00 Temperature Pulse Rate Pulse Rate [Right Pulse Oximeter] 62 67 79 Respiratory Rate 7 L 10 L 12 Blood Pressure Blood Pressure [Ri ght Arm] 114/68 111/61 Pulse Oximetry 95 [facility] Room Air 02/18/23 18:00 02/18/23 18:30 02/18/23 23:00 Temperature 97.9 F Pulse Rate Pulse Rate [Right Pulse Oximeter] 61 79 68 Respiratory Rate 12 12 14 Blood Pressure Blood Pressure [Ri ght Arm] 110/55 L 107/63 104/66 Pulse Oximetry 96 97 98 Oxygen Delivery Me thod Room Air Room Air Room Air 02/18/23 23:00 02/19/23 03:00 02/19/23 08:00 Temperature 97.9 F 97.8 F 97.5 F L Pulse Rate Pulse Rate [Right Pulse Oximeter] 68 87 67 Respiratory Rate 14 16 16 Blood Pressure Blood Pressure [Ri ght Arm] 104/66 103/61 104/61 Pulse Oximetry 98 99 97 Oxygen Delivery Me thod Room Air Room Air Room Air 02/19/23 08:00 Temperature Pulse Rate Pulse Rate [Right Pulse Oximeter] 67 Respiratory Rate 16 Blood Pressure Blood Pressure [Ri ght Arm] Pulse Oximetry Oxygen Delivery Me thod DS: Data Data Completed and Pending Labs on day of discharge: Labs from last 24 hours 02/18/23 21:00 Potassium 3.9 Discharge Plan Discharge Disposition: Home, Self-Care Discharging Surgeon: Montserrat Lebron Follow-Up Appointment: 2 week follow up, phone ok Prescriptions: New oxycodone 5 mg tablet 5 mg PO Q6H PRN (Reason: pain) Qty: 10 0RF senna 8.6 mg capsule 8.6 mg PO DAILY PRN (Reason: constipation) Qty: 90 0RF Continued fluoxetine 20 mg capsule 40 mg PO QAM quetiapine 50 mg tablet 50 mg PO HS Activity Level: No strenuous activity Activity Detail: Activity as tolerated. Avoid strenuous activity. No lifting greater than 20 lb for 2 weeks. Discharge Diet: Low Fat/Low Cholesterol Diet Detail: Continue with low fat diet for next 2 weeks. Then start to add in more regular foods. Patient Instructions: Oxycodone, Rapid Release (By mouth), Senna (By mouth), General Anesthesia (DC), Laparoscopic Cholecystectomy (DC), Post-Operative Instructions: Laparoscopic Cholecystectomy Additional Instructions: You were prescribed a narcotic pain medication. In addition you may supplement with Tylenol and/or ibuprofen. Be sure to not exceed greater than 4 g of Tylenol in a 24 hour period. While on narcotic pain medicine please take stool softeners. A prescription of stool softeners has been sent to the pharmacy. Stop if having greater than 2 stools per day. Okay to shower starting tomorrow. Do not soak in a bath or swim for 2 weeks. Allow Steri-Strips to fall off on their own. Forms: Work/School Release Follow-up: Montserrat Lebron MD [Staff Physician] - (Please call and schedule follow up appointment in 2 weeks ) Akosua Nixon MD [Primary Care Provider] - 02/25/23 11:45 am ([facility] @ [facility] ) Discharge Orders: Discharge Order (Routine); Ordered 02/19/23 Ordered By: Pau Manuel
--- NOTE | 2023-02-19 12:55 | PC.NURSE ---
Discharge: Patient pleasant and cooperative. Patient vitally stable, lungs clear, BS WNL, IV removed, catheter intact. Patient independent in room. Patient reported pain at most 2/10, no pain meds given before discharge. Patient urinating, tolerating regular diet and walking the halls. Patient lap sites x5 C/D/I. Patient signed belongings sheet and discharge form. Patient had no further questions regarding discharge. Patient left the floor by foot to home at 1253.
== END 2023-02-19 12:53 | disposition home or self-care (01) ==
LOC: ED 21:00 → MEDSURG 02-18 06:38 → ED 02-18 08:26 → SS 02-18 08:32 → MEDSURG 02-18 16:20
PROVIDERS: Hospitalist; Surgery; Emergency Provider Student in an Organized Health Care Education/Training Program; PCP Family Medicine; Visit Provider Surgery
PROC: 0FT44ZZ Resection of Gallbladder, Percutaneous Endoscopic Approach (ICD-10-PCS; CPT 47563; principal; 2023-02-18 13:30)
DX: K80.12 Calculus of gallbladder with acute and chronic cholecystitis without obstruction (principal); R10.11 Right upper quadrant pain
CPT/HCPCS: 47563; 00790; 36415; 74177; 74300; 76705; 80053; 81001; 82248; 83690; 84132; 85025; 88304; 93005; 94761; 99283; 99285; A9270; C9113; J0665; J0690; J1100; J1885; J2175; J2250; J2270; J2405; J2543; J2704; J2710; J3010; J3480; Q9967

== ENCOUNTER 2023-05-03 12:09 | Emergency (ER) | payer BC, SELFPAY ==
[2023-05-03 12:19] VITALS: BP 120/74; PULSE 66; RESP 18; TEMP 36.6; O2SAT 100; BMI 23.9
--- NOTE | 2023-05-03 12:46 | CRLHL7_ITS ---
For Patients: As a result of the Century Cures Act, medical imaging exams and procedure reports are released immediately into your electronic medical record. You may view this report before your referring provider. If you have questions, please contact your health care provider. INDICATION: Epigastric abdominal pain. Cholecystectomy 2.5 months prior. TECHNIQUE: CT abdomen and pelvis acquired with 71 cc Isovue 370 IV contrast. COMPARISON: None available. FINDINGS: Lower chest: Incidental note is made of incompletely imaged bilateral breast implants without significant incidental findings. Liver: Simple caudate and left hepatic lobe cysts. Too small to characterize inferior right hepatic lobe round circumscribed homogeneous low-attenuation finding also statistically likely to represent a cyst for which no further workup for ongoing imaging surveillance is recommended. Gallbladder and bile ducts: Cholecystectomy. No biliary ductal dilatation. Pancreas: Unremarkable. No mass or inflammation. Spleen: Unremarkable. Normal in size. No masses. Adrenal glands: Unremarkable. No nodules. Kidneys: Unremarkable. No suspicious masses, stones, or hydronephrosis. GI tract: No acute finding. Normal in caliber. No sign of mass or inflammation. Normal appendix. Vasculature: Abdominal aorta is normal in caliber. Mesenteric arteries are patent. Lymph nodes: No lymphadenopathy. Peritoneum/Abdominal Wall: Unremarkable. No sign of mass or infiltration. No free air or significant free fluid. Pelvis: Bilateral asymmetrical prominent periuterine vessels and asymmetrical enlargement of the bilateral ovarian veins, the right measuring 7 mm the left 8 mm. Such findings have been described in association with pelvic congestion syndrome. Correlation with the patient`s history as a potential significance of these imaging findings is recommended. Bones: T11-T12, L4-L5 and L5-S1 disc degeneration. IMPRESSION: No specific imaging findings to explain history of epigastric abdominal pain. No postsurgical complications are identified. Incidental findings described above including prominent periuterine vessels and ovarian veins which have been described in association with pelvic congestion syndrome, which is a clinical diagnosis. Correlation with the patient`s history is recommended as to the significance of these imaging findings. Please note that all CT scans at this facility use dose modulation, iterative reconstruction, and/or weight-based dosing when appropriate to reduce radiation dose to as low as reasonably achievable. Dictated by Portillo Moreau MD @ 05/03/2023 3:15:54 PM (Electronically Signed)
--- NOTE | 2023-05-03 12:47 | ED.ABDPAIN ---
HPI - Abdominal Pain General Chief Complaint: Abdominal Pain Stated Complaint: Abdominal pain post op 2.5 months Time Seen by Provider: 05/03/23 12:11 History of Present Illness HPI narrative: This 67-year-old female comes in with episodes of upper epigastric abdominal pain. She had her gallbladder removed 2 and half months ago and had a follow-up appointment with her surgeon here who stated that it can be upwards of 3 months before things normalize in her postop recovery. Patient states that she sometimes has very severe pain that can last for an hour to her sometimes for a whole day. Currently she does not have any pain but called into the clinic and was told by the triage nurse to come here for evaluation. She did have pain that was severe 2 days ago and had a tablet of oxycodone left over from the surgery. She took that which brought some minimal relief. She has had some vomiting related to this. She states that the pain typically begins in the morning after a light breakfast but reports that she does not have pain when eating other meals. She does not report any fevers. Related Data Home Medications Medication Instructions Recorded Confirmed fluoxetine 20 mg capsule 40 mg PO QAM 02/17/23 02/17/23 quetiapine 50 mg tablet 50 mg PO HS 02/17/23 02/18/23 Previous Rx's Medication Instructions Recorded oxycodone 5 mg capsule 5 mg PO Q6H PRN pain #20 caps 05/03/23 Allergies Allergy/AdvReac Type Severity Reaction Status Date / Time No Known Drug Allergies Allergy Verified 05/03/23 14:36 Review of Systems Status of ROS Reports: 10 or more systems reviewed and unremarkable except as noted in History and below Narrative Constitutional: No fevers, no weight gain or loss. Eyes: No discharge. No vision changes. HENT: No congestion, no sore throat, no ear pain. Cardiovascular: No chest pain, no palpitations. Respiratory: No shortness of breath, no wheezes, no cough. Gastrointestinal: Abdominal pain with vomiting episodes as described above. Genitourinary: No dysuria, no hematuria. Musculoskeletal: Normal range of motion. Skin: No rashes, no pruritis. Neurological: No dizziness, weakness, sensory change, speech change. Endo/Heme/Allergies: No bruising or bleeding. No polydipsia. Pysch: no suicidality, no anxiety, no insomnia. All other systems reviewed and are negative. PFSH PFSH Medical History (Updated 05/03/23 @ 17:04 by Codey Lopez MD) H/O pneumothorax ?Z87.09 - Personal history of other diseases of the respiratory system (ICD-10) Surgical History (Updated 02/19/23 @ 15:13 by Pau Manuel MD) S/P laparoscopic cholecystectomy ?Z90.49 - Acquired absence of other specified parts of digestive tract (ICD-10) H/O breast augmentation ?Z98.82 - Breast implant status (ICD-10) H/O lumbosacral spine surgery ?Z98.890 - Other specified postprocedural states (ICD-10) Social History What is your current living situation?: I presently have a place to live Problems where you live: no known problems Problems where you live details: N/A In the past 12 months, utilities in danger of being shut off: no In past 12 months, lack of transportation kept you from medical appts, meetings, work, or getting things needed for daily living: no In the past 12 mos, have been you worried that your food would run out before you had money to buy more?: never true In the past 12 mos, the food you bought just didn't last and you didn't have money to buy more?: never true Highest level of school completed/degree received: some college, no degree Smoking Status: Never smoker Do you use any of these nicotine containing products: None Second hand tobacco smoke exposure: No How often do you have a drink containing alcohol: never How often do you have six or more drinks on one occasion: Never AUDIT-C Alcohol total score: 0 Non-prescribed substance use: denies use Caffeine: Yes How often does anyone, including family, friends and others, physically hurt you: never How often does anyone, including family, friends and others, insult or talk down to you: never How often does anyone, including family, friends and others, threaten you with harm: never How often does anyone, including family, friends and others, scream or curse at you: never service: No Exam Narrative: Exam Narrative: Constitutional: Well-developed, well-nourished, no acute distress. HEENT: Normocephalic, atraumatic. Neck: Normal range of motion. Nontender. Supple. Heart: Regular. No murmurs. Normal rate. Intact distal pulses. Lungs: Clear to auscultation. No chest discomfort. No wheezes, rhonchi, or rales. Abdomen: Normal bowel sounds. Nontender. No rebound tenderness. Genitalia: Deferred. Back: No midline tenderness. Normal range of motion. Extremities: Normal range of motion. No injury. Skin: Intact. No rash. Warm. No erythema or pallor. Neurologic: No altered sensation. No weakness. Alert and oriented. Psychiatric: No suicidality. No anxiety or depression. No insomnia. Nursing notes and vitals signs are reviewed. Const: Vital Signs, click to edit/add: Vital Signs - 24 hr 05/03/23 12:19 05/03/23 16:47 Temperature 97.9 F 98.2 F Pulse Rate [Right Pulse Oximeter] 66 83 Respiratory Rate 18 Blood Pressure [Ri ght Upper Arm] 120/74 112/69 Pulse Oximetry 100 96 Oxygen Delivery Me thod Room Air Room Air Course Vital Signs Vital signs: Initial Vital Signs Temperature 97.9 F 05/03/23 12:19 Temperature Source Temporal Artery Scan 05/03/23 12:19 Pulse Rate 66 05/03/23 12:19 Respiratory Rate 18 05/03/23 12:19 Blood Pressure 120/74 05/03/23 12:19 Blood Pressure Mean 89 05/03/23 12:19 Blood Pressure Position Sitting 05/03/23 12:19 Pulse Oximetry 100 05/03/23 12:19 Oxygen Delivery Method Room Air 05/03/23 12:19 Vital Signs Temperature 97.9 F 05/03/23 12:19 Pulse Rate 66 05/03/23 12:19 Respiratory Rate 18 05/03/23 12:19 Blood Pressure 120/74 05/03/23 12:19 Pulse Oximetry 100 05/03/23 12:19 Oxygen Delivery Method Room Air 05/03/23 12:19 Temperature 98.2 F 05/03/23 16:47 Pulse Rate 83 05/03/23 16:47 Respiratory Rate 18 05/03/23 12:19 Blood Pressure 112/69 05/03/23 16:47 Pulse Oximetry 96 05/03/23 16:47 Oxygen Delivery Method Room Air 05/03/23 16:47 MDM - Abdominal Pain MDM Narrative Medical decision making narrative: This patient comes in reporting episodes of abdominal pain as described above. Currently she is not having any pain in arrives with normal vital signs. An IV was established and labs are acquired. CT imaging of the abdomen and pelvis show no acute findings to explain her episodes of pain. Lab results also returned with normal findings except for significant elevated levels of AST and ALT. However her bilirubin is normal. I did speak with the surgeon on-call who did her cholecystectomy, Dr. Lebron, who reviewed images and lab results and recommended follow-up with GI clinic. She recommended also that I speak with someone on-call if there is any advice regarding further studies it should be done today. Three calls were made to make this consult occur over more than an hour of time but there was no response. Meanwhile the patient herself feels okay to return home. She does have ability to follow-up with her primary physician and does no a GI doctor to connect with. I stated that she will need to have her liver enzymes rechecked. Lab Data Labs: Lab Results 05/03/23 Range/Units 12:55 WBC 2.99 L (4.50-11.00) K/uL RBC 4.26 (4.00-5.20) m/uL Hgb 12.9 (12.0-16.0) gm/dL Hct 39.2 (33.0-51.0) % MCV 92 (80-100) fL MCH 30 (26-34) pg MCHC 33 (32-36) gm/dL RDW Coeff of Maxim 13.3 (11.5-15.5) % Plt Count 302 (140-440) K/uL Neut % (Auto) 44.4 (42.0-72.0) % Lymph % (Auto) 35.8 (20-44) % [place] % (Auto) 11.4 H (0.0-11.0) % Eos % (Auto) 7.4 H (0.0-7.0) % Baso % (Auto) 1.0 (0.0-3.0) % Neut # (Auto) 1.30 L (1.7-7.0) K/uL Lymph # (Auto) 1.10 (0.90-2.90) K/uL [place] # (Auto) 0.30 (0.00-0.90) K/UL Eos # (Auto) 0.20 (0.00-0.50) K/uL Baso # (Auto) 0.00 (0.00-0.30) K/uL Abs Immat Gran (auto) 0.00 (0.00-0.30) K/uL Imm/Tot Granulo (auto) 0.0 % Sodium 139 (135-149) mmol/L Potassium 3.7 (3.6-5.1) mmol/L Chloride 101 (96-114) mmol/L Carbon Dioxide 29 (20-32) mmol/L Anion Gap 9 (7-15) mEq/L BUN 10 (7-30) mg/dL Creatinine 0.6 (0.5-1.5) mg/dL Estimated Creat Clear 50.47 Estimated GFR 100 ml/min Glucose 96 (60-115) mg/dL Calcium 9.1 (8.4-10.6) mg/dL Total Bilirubin 0.5 (0.1-1.5) mg/dL Direct Bilirubin 0.0 (0.0-0.5) mg/dL AST 973 H (12-35) U/L ALT 1158 H (4-35) U/L Alkaline Phosphatase 188 H (40-150) U/L Total Protein 7.5 (6.0-8.3) g/dL Albumin 4.4 (3.3-5.0) g/dL Lipase 34 (23-300) U/L Imaging Data CT scan - abdomen: Radiologist's impression: No specific imaging findings to explain history of epigastric abdominal pain. No postsurgical complications are identified. Discharge Plan Discharge Clinical Impression: Elevated liver enzymes, Abdominal pain Patient Disposition: Home, Self-Care Condition: Stable Additional Instructions: Follow-up with primary physician, gastroenterology clinic for recheck of liver enzymes. Take medication as needed and directed. Follow up with MD return if worsening. Prescriptions: New oxycodone 5 mg capsule 5 mg PO Q6H PRN (Reason: pain) Qty: 20 0RF No Action fluoxetine 20 mg capsule 40 mg PO QAM quetiapine 50 mg tablet 50 mg PO HS Follow Up/Referrals: Akosua Nixon MD [Primary Care Provider] - Stand Alone Forms: [employer] Info Instructions
--- OUTSIDE RECORDS SUMMARY | 2023-05-03 13:02 | XMS_ITS | Continuity of Care Document ---
Author Name Unknown Organization [facility] Address [address] [place] [address] Phone Care Team Providers Care Hose Sprayer Name Role Phone Shyanne GARCIA, PhD, Keith Unavailable Unavai lable Allergies, Adverse Reactions, Alerts Substance Reaction Status Criticality No Known Allergies Active No Inform ation Medications Medication Instructions Dosage Effective Dates (start - stop) Status Comments TIZANIDINE HCL (unknown strength) Not Available - Active FLUOXETINE HCL (unknown strength) Not Available - Active Procedures Procedure Date Office/Outpatient Visit,[facility] 2017 Advance Directives Directive Yes / No Effective Date File Name No Information Encounters Encounter Description Practice Location Reason(s) For Visit Diagnoses Date Provider Providers Copied on Encounter Office/Outpat ient Visit,[facility], [facility], [address], [facility] [place] [place], [id number], [place] tel:[phone] [facility] [place] CervicalgiaOther spondylosis, cervical region 8 Shyanne Parker. [facility], [address] [facility] [address], [place], [address], [place]. tel:[phone] [facility], [address], [place], [id number], [place] tel:[phone] [facility] Cervicalgia 8 Shyanne Parker. [facility], [address], [place], [address], [place]. [phone] Family History Family Member Type Diagnosis Age At Onset No Information Payers Payer name Insurance type Covered republican ID Authoriza tion(s) [facility] [id number] Social History Type Description Quantity Date Captured [...]
[2023-05-03 13:04] LABS: Eosinophils Percent Auto 7.4 % (0.0-7.0); Hematocrit 39.2 % (33.0-51.0); Hemoglobin* 12.9 gm/dL (12.0-16.0); Lymphocytes Percent Auto 35.8 % (20-44); Mean Corpuscular HGB Conc 33 gm/dL (32-36); Mean Corpuscular Hemoglobin 30 pg (26-34); Mean Corpuscular Volume 92 fL (80-100); Monocytes Percent Auto 11.4 % (0.0-11.0); Neutrophils Percent Auto 44.4 % (42.0-72.0); Platelet Count* 302 K/uL (140-440); RDW Coefficient of Variation % 13.3 % (11.5-15.5); Red Blood Count 4.26 m/uL (4.00-5.20); Slide Review Reflex No; White Blood Count* 2.99 K/uL (4.50-11.00)
[2023-05-03 13:15] LABS: Albumin* 4.4 g/dL (3.3-5.0); Chloride* 101 mmol/L (96-114); Sodium* 139 mmol/L (135-149)
[2023-05-03 13:16] LABS: Potassium* 3.7 mmol/L (3.6-5.1)
[2023-05-03 13:18] LABS: Alkaline Phosphatase* 188 U/L (40-150); Anion Gap 9 mEq/L (7-15); Bilirubin Total* 0.5 mg/dL (0.1-1.5); Blood Urea Nitrogen* 10 mg/dL (7-30); Calcium* 9.1 mg/dL (8.4-10.6); Carbon Dioxide* 29 mmol/L (20-32); Creatinine* 0.6 mg/dL (0.5-1.5); Est. Creatinine Clearance* 50.47; Estimated Glomerular Filt Rate 100 ml/min; Glucose* 96 mg/dL (60-115); Lipase* 34 U/L (23-300); Total Protein* 7.5 g/dL (6.0-8.3)
[2023-05-03 13:26] LABS: Aspartate Amino Transferase* 973 U/L (12-35)
[2023-05-03 13:40] LABS: Alanine Aminotransferase* 1158 U/L (4-35)
[2023-05-03 16:47] VITALS: BP 112/69; PULSE 83; TEMP 36.8; O2SAT 96
== END 2023-05-03 17:15 | disposition home or self-care (01) ==
PROVIDERS: Emergency Provider Emergency Medicine Emergency Medical Services; PCP Family Medicine
DX: R10.13 Epigastric pain (principal); R94.5 Abnormal results of liver function studies
CPT/HCPCS: 36415; 74177; 80048; 80076; 83690; 85025; 99284; Q9967